=== PATIENT | female | born 1990 | race Caucasian/White ===

== ENCOUNTER → 2018-01-02 06:23 | Observation (INO) ==
[2018-01-02 03:53] LABS: Amphetamine Screen,Urine Negative ng/mL (Cutoff=1000); Barbiturate Screen,Urine Negative ng/mL (Cutoff=200); Benzodiazepines Screen,Urine Negative ng/mL (Cutoff=200); Cannabinoid Screen,Urine Negative ng/mL (Cutoff = 50); Cocaine Screen,Urine Negative ng/mL (Cutoff= 300); Opiate Screen,Urine Negative ng/mL (Cutoff=300); Phencyclidine Screen,Urine Negative ng/mL (Cutoff=25)
[2018-01-02 03:54] LABS: Bacteria,Urine Many per hpf (None-Few); Bilirubin,Urine Negative (Negative); Blood,Urine Negative (Negative); Clarity,Urine Cloudy (Clear); Color,Urine Yellow (Yellow); Glucose,Urine (UA) Normal (Normal); Hyaline Casts,Urine None Seen per lpf (None-Few); Ketones,Urine Negative (Negative); Leukocyte Esterase,Urine Trace (Negative); Nitrite,Urine Negative (Negative); Protein,Urine Negative (Neg-Trace); RBC,Urine 0-3 per hpf (0-3); Specific Gravity,Urine 1.009 (1.010-1.025); Squamous Epithelial Cell,Urine Many per lpf (None-Few); Urobilinogen,Urine Normal (Normal)
--- NOTE | 2018-01-02 06:15 | OB/GYN Progress Note ---
Date of Encounter: 01/02/18 Time of Encounter: 06:01 - Assessment and Plan (1) 37 weeks gestation of Current Visit: Yes Status: Acute (2) Urinary tract infection Current Visit: No Status: Acute UA shows UTI, +cva tenderness, afebrile. cervix unchanged on serial exams. discharged home with keflex BID, and labor and when to return to triage precautions. Qualifiers: Urinary tract infection type: acute cystitis Hematuria presence: without hematuria Qualified Code(s): N30.00 - Acute cystitis without hematuria Subjective - Subjective Interval history: presents with complaints of left flank pain over the last two days increasing in intensity tonight. Reports good movement, denies vaginal bleeding or leaking of fluid. denies dysuria or urgency Antepartum ROS: movement normal, no loss of fluid, no vaginal bleeding, no contractions Objective - Vital Signs Vital Signs: Intake and Output 01/01/18 01/01/18 01/02/18 15:59 23:59 07:59 Other: Weight 125.464 kg Patient Weight 01/02/18 23:59 Weight 125.464 kg - Exam FHR: auscultation normal FHR comments: Baseline 125 Abdomen: Present: soft, gravid Cervical dilation: 1-2/70 per RN - Labs Labs: Abnormal lab results Urine Clarity Cloudy (Clear) A 01/02/18 03:19 Ur Specific [place] 1.009 (1.010-1.025) L 01/02/18 03:19 Ur Leukocyte Esterase Trace (Negative) H 01/02/18 03:19 Urine Microscopic WBC 5-15 per hpf (0-3) H 01/02/18 03:19 Ur Squamous Epith Cells Many per lpf (None-Few) H 01/02/18 03:19 Urine Bacteria Many per hpf (None-Few) H 01/02/18 03:19 Ur Culture Indicated? NO. (NO) A 01/02/18 03:19
== END | disposition home or self-care (01) ==
LOC: 1NENULAB
PROVIDERS: ADMIT Advanced Practice Midwife; ATTEND Advanced Practice Midwife